=== PATIENT | male | born 1985 | race American Indian/Alaskan Native ===

== ENCOUNTER 2018-02-24 22:54 | Emergency (ER) | payer OTHER ==
[2018-02-24] MEDS ORDERED: Tetanus/Diphtheria Toxoids 0.5 ml Syringe IM ONE ×2 (23:20→23:25)
[2018-02-24] MEDS ORDERED: Bacitracin 500 Units/gm Oint Foilpak UD TOP STA (23:20)
[2018-02-24] MEDS ORDERED: Bacitracin 500 Units/gm Oint Foilpak UD ONE (23:25)
[2018-02-24] MEDS ORDERED: Amoxicillin-Clav 875-125 mg Tab PO ONE (23:31)
--- NOTE | 2018-02-24 23:32 | C.PDOC ---
History Of Present Illness 32 year old male presents to the ED for evaluation of a bite. Patient reports he was bitten by his own dog on his left hand. Patient reports dog has all immunizations. Patient denies fever, chills, nausea, vomit, rash, weakness, numbness. Time Seen by Provider: 02/24/18 23:10 Chief Complaint (Nursing): Bite History Per: Patient History/Exam Limitations: no limitations Onset/Duration Of Symptoms: Hrs Current Symptoms Are (Timing): Still Present Location Of Injury: Left: Head Quality Of Symptoms: Painful Recent travel outside of the [place]: No Additional History Per: Patient - Animal Bite Description Of The Attack: Tried To Pet Animal Description Of The Animal: Family Pet Reports Animal Appears: Well Reports Animal's Immunization Status: ALD Animal Control Notified: No Past Medical History Reviewed: Historical Data, Nursing Documentation, Vital Signs Vital Signs: Last Vital Signs Temp 98 F 02/24/18 23:34 Pulse 100 H 02/24/18 23:34 Resp 18 02/24/18 23:34 BP 120/70 02/24/18 23:34 Pulse Ox 95 02/25/18 00:06 - Medical History PMH: HTN Surgical History: No Surg Hx Family History: States: Unknown Family Hx - Social History Hx Alcohol Use: Yes Hx Substance Use: No - Immunization History Hx Tetanus Toxoid Vaccination: No ("not sure") Hx Influenza Vaccination: No Hx Pneumococcal Vaccination: No Review Of Systems Constitutional: Negative for: Fever, Chills Musculoskeletal: Positive for: Hand Pain (bite) Neurological: Negative for: Weakness, Numbness Physical Exam - Physical Exam Appears: Non-toxic, No Acute Distress Skin: Normal Color, Warm, Dry Head: Atraumatic, Normacephalic, Laceration (1 cm superfical to the space between left thumb and index finger) Eye(s): bilateral: Normal Inspection Extremity: Normal ROM, No Tenderness, Capillary Refill (< 2 seconds), No Swelling Pulses: Left Radial: Normal, Right Radial: Normal Neurological/Psych: Oriented x3, Normal Motor, Normal Sensation Gait: Steady ED Course And Treatment O2 Sat by Pulse Oximetry: 95 (ON RA) Pulse Ox Interpretation: Normal Progress Note: Plan: - Augmentin 875 mg PO. - Bacitracin 1 ea TOP. - Tetanus update. Superficial lacertion on left hand was irrigated with beatdine and saline, wound was checked for FB and a bacitracin bandage was applied. Patient was instructed on wound care and advised to follow up with PMD in 2 days. Pt understand and agreed to plan, return precautions discussed Disposition Counseled Patient/Family Regarding: Diagnosis, Need For Followup, Rx Given - Disposition Disposition: HOME/ ROUTINE Disposition Time: 23:30 Condition: STABLE Additional Instructions: Please follow up with PMD in 2 days for wound check Apply bacitrcin oint to wound Wash wound with mild soap and water Return to ER if worse Prescriptions: Amoxicillin/Clavulanate [Augmentin 875 MG-125 MG] 1 tab PO BID #14 tab Instructions: Animal Bites (DC) Forms: [employer] (Romansh) - Clinical Impression Clinical Impression: Animal bite of hand - PA / ADA ACCOMMODATION CONSULTANT / Resident Statement MD/DO has reviewed & agrees with the documentation as recorded. - Scribe Statement The provider has reviewed the documentation as recorded by the Scribe Parish Fernandez All medical record entries made by the Scribe were at my direction and personally dictated by me. I have reviewed the chart and agree that the record accurately reflects my personal performance of the history, physical exam, medical decision making, and the department course for this patient. I have also personally directed, reviewed, and agree with the discharge instructions and disposition.
[2018-02-24] MEDS ORDERED: Amoxicillin-Clav 875-125 mg Tab PO STA (23:36)
[2018-02-24 23:40] VITALS: BP 120/70; PULSE 100; RESP 18; TEMP 98
[2018-02-24 23:53] VITALS: O2SAT 95
== END 2018-02-24 23:40 | disposition home or self-care (01) ==
LOC: C.ER 22:54
DX: S60.572A Other superficial bite of hand of left hand, initial encounter (principal); W54.0XXA Bitten by dog, initial encounter; Y92.9 Unspecified place or not applicable; Z23 Encounter for immunization